=== PATIENT | female | born 1965 | race Two or more races ===

== ENCOUNTER 2017-05-08 05:41 | Emergency (ER) | payer MEDICAID ==
[2017-05-08 06:36] LABS: UA SPECIFIC GRAVITY 1.025 (1.005-1.035); microscopic required? YES; urine erythrocyte 1+ (NEGATIVE)
[2017-05-08 06:37] LABS: BASOPHIL % 0.1 % (0-2); PLATELET COUNT 240 x10^3mcL (130-400); RED CELL DISTRIBUTION WIDTH 14.5 % (11.5-14.5)
[2017-05-08 06:44] LABS: CALCIUM 8.4 mg/dL (8.5-10.1); CARBON DIOXIDE 27.5 mmol/L (21-32); CHLORIDE SERUM 105 mmol/L (98-107); CREATININE SERUM 0.7 mg/dL (0.6-1.0); GFR1 > 60 mL/min; GLUCOSE SERUM 97 mg/dL (74-106); POTASSIUM SERUM 3.5 mmol/L (3.5-5.1); SODIUM SERUM 141 mmol/L (136-145)
[2017-05-08 06:50] LABS: ALBUMIN 3.3 g/dL (3.4-5.0); ALKALINE PHOSPHATASE 57 U/L (46-116); ALT/SGPT 20 U/L (14-59); AMYLASE 56 U/L (25-115); AST/SGOT 17 U/L (15-37); BILIRUBIN TOTAL 0.32 mg/dL (0.20-1.00); LIPASE 117 IU/L (73-393); TOTAL PROTEIN, SERUM 6.9 g/dL (6.4-8.2)
[2017-05-08 11:12] VITALS: BP 141/64
== END 2017-05-08 11:12 | disposition home or self-care (01) ==
LOC: ED 05:41
PROVIDERS: Emergency Medicine
DX: R10.13 Epigastric pain (principal); R10.11 Right upper quadrant pain; R10.30 Lower abdominal pain, unspecified; I10 Essential (primary) hypertension; R11.10 Vomiting, unspecified; M79.604 Pain in right leg; Z88.0 Allergy status to penicillin
CPT/HCPCS: J1885; J2405; J3490; J7030; Q0092; Q9967

== ENCOUNTER 2017-08-21 08:15 | Emergency (ER) | payer MEDICAID ==
[~2017-08-21] VITALS: Ht 152.4 cm; Wt 81.6 kg
[2017-08-21 08:27] VITALS: Ht 152.4 cm; Wt 81.6 kg
[2017-08-21 12:24] VITALS: BP 153/89
== END 2017-08-21 12:24 | disposition home or self-care (01) ==
LOC: ED 08:15
DX: M75.32 Calcific tendinitis of left shoulder (principal); I10 Essential (primary) hypertension
CPT/HCPCS: J1885; J3301; J3490

== ENCOUNTER 2017-08-22 05:17 | Emergency (ER) | payer MEDICAID ==
[2017-08-22 07:49] VITALS: BP 150/90
== END 2017-08-22 07:49 | disposition home or self-care (01) ==
LOC: ED 05:17
DX: M75.32 Calcific tendinitis of left shoulder (principal); I10 Essential (primary) hypertension; Z88.0 Allergy status to penicillin
CPT/HCPCS: J1885